=== PATIENT | male | born 1950 | race Caucasian/White ===

== ENCOUNTER 2017-12-24 09:04 | Emergency (ER) | payer BC, MEDICARE ==
[2017-12-24 09:18] VITALS: BP 120/85; PULSE 94; RESP 16; TEMP 97.8
--- NOTE | 2017-12-24 12:36 | ED ---
ENT HPI - General Chief complaint: ENT Stated complaint: Nosebleed Time Seen by Provider: 12/24/17 09:25 Source: patient Mode of arrival: ambulatory Limitations: no limitations - History of Present Illness Initial comments: 67 years old male had a nosebleed since 6 AM today he is on his overall toe and he has a history of atrial fibrillation, he denies any trauma to the nose he denies any other complaints, review of system is unremarkable - Related Data Home Medications Medication Instructions Recorded Confirmed Calcium Carbonate/Vitamin D3 1 tab PO MOTUWETHFR 12/24/17 12/24/17 [Calcium 500-Vit D3 200 Tablet] Lutein 10 mg PO MOTUWETHFR 12/24/17 12/24/17 Magtein 1 tab PO MOTUWETHFR 12/24/17 12/24/17 Metoprolol Succinate (ER) [Toprol 25 mg PO DAILY 12/24/17 12/24/17 Xl] Niacinamide 1 tab PO MOTUWETHFR 12/24/17 12/24/17 Rivaroxaban [Xarelto] 20 mg PO DAILY 12/24/17 12/24/17 Selenium 100 mcg PO MOTUWETHFR 12/24/17 12/24/17 Sylmarin 1 tab PO MOTUWETHFR 12/24/17 12/24/17 Turmeric Root Extract [Turmeric] 500 mg PO MOTUWETHFR 12/24/17 12/24/17 Ubidecarenone [Co Q-10] 100 mg PO MOTUWETHFR 12/24/17 12/24/17 Vein Guard 1 tab PO MOTUWETHFR 12/24/17 12/24/17 Vit C/E/Zn/Coppr/Lutein/Zeaxan 1 cap PO MOTUWETHFR 12/24/17 12/24/17 [Preservision Areds 2 Softgel] Vitamin E (Dl,Tocopheryl Acet) 400 unit PO MOTUWETHFR 12/24/17 12/24/17 [Vitamin E] Allergies Allergy/AdvReac Type Severity Reaction Status Date / Time No Known Allergies Allergy Verified 12/24/17 10:19 Review of Systems ROS Statement: Those systems with pertinent positive or pertinent negative responses have been documented in the HPI. ROS Other: All systems not noted in ROS Statement are negative. Past Medical History Past Medical History: Atrial Fibrillation History of Any Multi-Drug Resistant Organisms: None Reported Past Surgical History: Hernia Repair Past Psychological History: No Psychological Hx Reported Smoking Status: Never smoker Past Alcohol Use History: Occasional Past Drug Use History: None Reported General Exam - General Exam Comments Initial Comments: General: The patient is awake and alert, in no distress, and does not appear acutely ill. Skin: Skin is warm and dry and no rashes or lesions are noted. Eye: Pupils are equal, round and reactive to light, extra-ocular movements are intact; there is normal conjunctiva bilaterally. Ears, nose, mouth and throat: Left-sided the nose was bleeding initially, it was packed, he still noticed some blood in the oropharynx and was repacked. Than the right nostril started bleeding there was packed as well Neck: The neck is supple, there is no tenderness Cardiovascular: There is a regular rate and rhythm. No murmur, rub or gallop is appreciated. Respiratory: To auscultation bilateral, no wheezing no rhonchi no distress respiratory delgadillo noticed Gastrointestinal: Soft, non-distended, non-tender abdomen without masses or organomegaly noted. There is no rebound or guarding present. Bowel sounds are unremarkable. Back: There is no tenderness to palpation in the midline. There is no obvious deformity. Musculoskeletal: Normal ROM, no tenderness, There is no pedal edema. There is no calf tenderness or swelling. No cords were appreciated. Neurological: CN II-XII intact, Cranial nerves III through XII are intact. There are no obvious motor or sensory deficits. Coordination appears grossly intact. Speech is normal. Psychiatric: Cooperative, appropriate mood & affect, normal judgment. Limitations: no limitations Course Vital Signs 12/24/17 09:14 Temperature 97.8 F Pulse Rate 94 Respiratory 16 Rate Blood Pressure 120/85 O2 Sat by Pulse 95 Oximetry The left side term nose was packed twice, and inflatable nose packing or nasal pain no was to be comfort the left-sided nasal cavity. Then the right-sided bleeding it was packed as well patient was observed in the ER for couple of hours with some ice water gargles to keep his check on the pleuritic in the oropharynx - Reevaluation(s) Reevaluation #1: Advised to return back to ER in 24-36 hours for the removal of the packing, he agreed with that or return to the ER if bleeds again 12/24/17 12:36 Disposition Clinical Impression: Epistaxis Disposition: HOME SELF-CARE Condition: Good Instructions: Nosebleed (ED) Additional Instructions: Return as instructed for packing removal per Dr Hess. Referrals: Cassandra Reynoso MD [Primary Care Provider] - 1-2 days
== END 2017-12-24 12:09 | disposition home or self-care (01) ==
LOC: EC 09:04
DX: R04.0 Epistaxis (principal); I48.91 Unspecified atrial fibrillation; Z79.01 Long term (current) use of anticoagulants; Z79.899 Other long term (current) drug therapy
CPT/HCPCS: 30901; 99283

== ENCOUNTER 2017-12-25 17:30 | Emergency (ER) | payer MEDICARE ==
[2017-12-25 18:50] VITALS: BP 132/85; PULSE 98; RESP 18; TEMP 97.8
--- NOTE | 2017-12-25 19:16 | ED ---
Recheck HPI - General Chief Complaint: Recheck/Abnormal Lab/Rx Stated Complaint: Bloody nose Time Seen by Provider: 12/25/17 19:01 Source: patient, RN notes reviewed, old records reviewed Mode of arrival: ambulatory Limitations: no limitations - History of Present Illness Initial Comments: This patient is a 67-year-old male presents emergency Department with bilateral anterior nasal packing. He reports that he is here to have packing removed. He was seen yesterday and had 2 nasal tampons placed in the right near and 1 nasal tampon placed in the left near. Patient reports that he was told to return in 36 hours abdomen removed. He is here with a 30 hour yury. Patient reports these had no significant bleeding. He is on several toe. Patient states that he's had no swallowing blood. No chest pain. He states that he did not take his blood thinner today because of this. He reports his previously followed up with her nose and throat specialist. - Related Data Home Medications Medication Instructions Recorded Confirmed Calcium Carbonate/Vitamin D3 1 tab PO MOTUWETHFR 12/24/17 12/24/17 [Calcium 500-Vit D3 200 Tablet] Lutein 10 mg PO MOTUWETHFR 12/24/17 12/24/17 Magtein 1 tab PO MOTUWETHFR 12/24/17 12/24/17 Metoprolol Succinate (ER) [Toprol 25 mg PO DAILY 12/24/17 12/24/17 Xl] Niacinamide 1 tab PO MOTUWETHFR 12/24/17 12/24/17 Rivaroxaban [Xarelto] 20 mg PO DAILY 12/24/17 12/24/17 Selenium 100 mcg PO MOTUWETHFR 12/24/17 12/24/17 Sylmarin 1 tab PO MOTUWETHFR 12/24/17 12/24/17 Turmeric Root Extract [Turmeric] 500 mg PO MOTUWETHFR 12/24/17 12/24/17 Ubidecarenone [Co Q-10] 100 mg PO MOTUWETHFR 12/24/17 12/24/17 Vein Guard 1 tab PO MOTUWETHFR 12/24/17 12/24/17 Vit C/E/Zn/Coppr/Lutein/Zeaxan 1 cap PO MOTUWETHFR 12/24/17 12/24/17 [Preservision Areds 2 Softgel] Vitamin E (Dl,Tocopheryl Acet) 400 unit PO MOTUWETHFR 12/24/17 12/24/17 [Vitamin E] Allergies Allergy/AdvReac Type Severity Reaction Status Date / Time No Known Allergies Allergy Verified 12/24/17 10:19 Review of Systems ROS Statement: Those systems with pertinent positive or pertinent negative responses have been documented in the HPI. ROS Other: All systems not noted in ROS Statement are negative. Past Medical History Past Medical History: Atrial Fibrillation History of Any Multi-Drug Resistant Organisms: None Reported Past Surgical History: Hernia Repair Past Psychological History: No Psychological Hx Reported Smoking Status: Never smoker Past Alcohol Use History: Occasional Past Drug Use History: None Reported General Exam - General Exam Comments Initial Comments: Alert and oriented well-appearing 67-year-old male. 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 No distress. Limitations: no limitations General appearance: alert, in no apparent distress Head exam: Present: atraumatic, normocephalic, normal inspection Eye exam: Present: normal appearance, PERRL, EOMI. Absent: scleral icterus, conjunctival injection, periorbital swelling ENT exam: Present: normal exam, normal oropharynx, mucous membranes moist, other (Evidence of bilateral nasal packing. No blood at the end of the packing. ) Neck exam: Present: normal inspection. Absent: tenderness, meningismus, lymphadenopathy Respiratory exam: Present: normal lung sounds bilaterally. Absent: respiratory distress, wheezes, rales, rhonchi, stridor Cardiovascular Exam: Present: regular rate, normal rhythm, normal heart sounds. Absent: systolic murmur, diastolic murmur, rubs, gallop, clicks Psychiatric exam: Present: normal affect, normal mood Skin exam: Present: warm, dry, intact, normal color. Absent: rash Course Vital Signs 12/25/17 18:47 Temperature 97.8 F Pulse Rate 98 Respiratory 18 Rate Blood Pressure 132/85 O2 Sat by Pulse 95 Oximetry Medical Decision Making - Medical Decision Making This patient is 67-year-old male presents emergency department today with history of nosebleed and had bilateral packing completed yesterday. He has 2 nasal tampons in the left nare, one nasal tampon in right nare. He returned is a 30 hour yury. I discussed with Dr. Cervantes patient's symptoms. He discussed that it should be 48 hours for removal from the onset of the packing. Discussed the patient is here too early. I discussed with the patient and concerned if I removed the packing he will have further bleeding. And at that point patient will have to have the packing in for 2 full days. He agrees that he would like to keep the packing in at this time. Discussed that he can follow -up with dry chain offbearer to have it removed. Discussed referral to Dr. Woody and Dr. Engel. All questions were answered and return parameters were discussed. Disposition Clinical Impression: Encounter for removal of nasal packing, Epistaxis Disposition: HOME SELF-CARE Condition: Good Instructions: Nosebleed (ED) Additional Instructions: Patient advised to keep the nasal packing in for one more day. Patient should follow-up tomorrow with the dry chain offbearer for removal. Return to the emergency department if any alarming signs or symptoms occur. Referrals: Cassandra Reynoso MD [Primary Care Provider] - 1-2 days Axel Yoder DO [Doctor of Osteopathic Medicine] - 1-2 days Vidal Abdi MD [STAFF PHYSICIAN] - 1-2 days Time of Disposition: 19:15
== END 2017-12-25 19:30 | disposition home or self-care (01) ==
LOC: EC 17:30
DX: R04.0 Epistaxis (principal); Z48.00 Encounter for change or removal of nonsurgical wound dressing; I48.91 Unspecified atrial fibrillation; Z79.01 Long term (current) use of anticoagulants; Z79.899 Other long term (current) drug therapy
CPT/HCPCS: 99283

== ENCOUNTER → 2024-02-08 | Outpatient (CLI) | payer MEDICARE ==
[2024-02-08 18:30] LABS: BUN/Creat Ratio 21.22 Ratio (12.00-20.00); Blood Urea Nitrogen 19.1 mg/dL (9.0-27.0); C Reactive Protein <0.30 mg/dL (0.00-0.80); Chloride 104 mmol/L (96-109); Glucose 98 mg/dL (70-110); LDL Cholesterol,Calculated 100.1 mg/dL (0.0-131.0); Potassium 4.5 mmol/L (3.5-5.5); Sodium 142 mmol/L (135-145); VLDL Calculation 12.06 mg/dL (5.00-40.00)
[2024-02-08 18:31] LABS: ALT 19 U/L (10-49); AST 20 U/L (14-35); Calcium 9.6 mg/dL (8.7-10.3); Carbon Dioxide 25.2 mmol/L (21.6-31.8)
[2024-02-08 19:32] LABS: Basophils # (A) 0.03 X 10*3/uL (0.00-0.10); Basophils % (A) 0.6 %; Eosinophils # (A) 0.26 X 10*3/uL (0.04-0.35); Eosinophils % (A) 4.9 %; HCT 47.9 % (39.6-50.0); HGB 15.8 g/dL (13.0-17.0); Lymphocytes # (A) 0.51 X 10*3/uL (0.90-5.00); Lymphocytes % (A) 9.5 %; MCH 29.6 pg (27.0-32.0); MCV 89.9 FL (80.0-97.0); Mean Platelet Volume 10.3 FL (9.5-12.2); Monocytes # (A) 0.54 X 10*3/uL (0.20-1.00); Monocytes % (A) 10.1 %; NRBC Per 100 WBC 0 X 10*3/uL (0.00-0.01); Neutrophils % (A) 74.5 %; Platelet Count 205 X 10*3/uL (140-440); RBC 5.33 X 10*6/uL (4.40-5.60); RDW 13.8 % (11.5-14.5); WBC 5.36 X 10*3/uL (4.50-10.00)
[2024-02-08 19:54] LABS: Erythrocyte Sedimentation Rate 15 mm/Hr (0-20)
[2024-02-09 15:16] LABS: HLA B27 NEGATIVE
== END | disposition home or self-care (01) ==
LOC: LABWHC1 13:32
PROVIDERS: ATTEND Internal Medicine Cardiovascular Disease
DX: I48.11 Longstanding persistent atrial fibrillation (principal); E78.2 Mixed hyperlipidemia
CPT/HCPCS: 36415; 80048; 80061; 84443; 84450; 84460; 85025; 85549; 85652; 86140; 86480; 86611; 86780; 86812

== ENCOUNTER 2024-06-07 18:18 | Observation (INO) | payer MEDICARE ==
--- NOTE | 2024-06-07 19:09 | ED ---
General Adult HPI - General Chief complaint: Chest Pain Stated complaint: chest pain/chills Time Seen by Provider: 06/07/24 18:45 Source: patient, RN notes reviewed, old records reviewed Mode of arrival: ambulatory Limitations: no limitations - History of Present Illness Initial comments: 73-year-old male who presents to the emergency department stating that He has a history of atrial fibrillation. Patient states that about 9:00 this morning started having left-sided chest pain it was definitely worse with inspiration but it was also there when he was not taking a deep breath. Patient denies any fever or cough but states he did have the chills earlier today. Patient denies any back pain. Patient denies any abdominal pain patient denies any nausea vomiting diarrhea - Related Data Home Medications Medication Instructions Recorded Confirmed Apixaban [Eliquis] 5 mg PO BID 06/07/24 06/07/24 Ketorolac 0.5% Ophth Soln [Acular 1 drop RIGHT EYE QID 06/07/24 06/07/24 0.5%] prednisoLONE ACETATE 1% OPHTH 1 drop LEFT EYE QID 06/07/24 06/07/24 [Pred Forte 1%] Allergies Allergy/AdvReac Type Severity Reaction Status Date / Time No Known Allergies Allergy Verified 06/07/24 19:43 Review of Systems ROS Statement: Those systems with pertinent positive or pertinent negative responses have been documented in the HPI. ROS Other: All systems not noted in ROS Statement are negative. Past Medical History Past Medical History: Atrial Fibrillation History of Any Multi-Drug Resistant Organisms: None Reported Past Surgical History: Hernia Repair Past Psychological History: No Psychological Hx Reported Past Alcohol Use History: Occasional Past Drug Use History: None Reported General Exam - General Exam Comments Initial Comments: GENERAL: Patient is well-developed and well-nourished. Patient is nontoxic and well- hydrated and is in no acute distress. ENT: Neck is soft and supple. No significant lymphadenopathy is noted. Oropharynx is clear. Moist mucous membranes. Neck has full range of motion without eliciting any pain. EYES: The sclera were anicteric and conjunctiva were pink and moist. Extraocular movements were intact and pupils were equal round and reactive to light. Eyelids were unremarkable. PULMONARY: Unlabored respirations. Good breath sounds bilaterally. No audible rales rhonchi or wheezing was noted. CARDIOVASCULAR: There is an irregular heartbeat ABDOMEN: Soft and nontender with normal bowel sounds. SKIN: Skin is clear with no lesions or rashes and otherwise unremarkable. NEUROLOGIC: Patient is alert and oriented x3. Cranial nerves II through XII are grossly intact. Motor and sensory are also intact. Normal speech, volume and content. Symmetrical smile. MUSCULOSKELETAL: Normal extremities with adequate strength and full range of motion. No lower extremity swelling or edema. No calf tenderness. LYMPHATICS: No significant lymphadenopathy is noted PSYCHIATRIC: Normal psychiatric evaluation. Limitations: no limitations Course Vital Signs 06/07/24 18:39 Temperature 99.3 F Pulse Rate 109 H Respiratory 20 Rate Blood Pressure 149/92 O2 Sat by Pulse 95 Oximetry Medical Decision Making - Medical Decision Making EKG is interpreted by myself but EKG shows atrial fibrillation at 96 bpm QRS is 94 QT interval 336 QTc is 390. Patient's EKG shows no ST segment ovation or depression. Was pt. sent in by a medical professional or institution (, PA, AUTOMATIC LATHE SETTER, urgent ca re, hospital, or long-term...) When possible be specific @ -No Did you speak to anyone other than the patient for history (EMS, parent, family, police, friend...)? What history was obtained from this source @ -No Did you review nursing and triage notes (agree or disagree)? Why? @ -I reviewed and agree with nursing and triage notes Were old charts reviewed (outside hosp., previous admission, EMS record, old EKG, old radiological studies, urgent care reports/EKG's, long-term records)? Report findings @ -No old charts were reviewed Differential Diagnosis? @ -Differential Chest Pain: Stable Angina, Unstable Angina, STEMI, NSTEMI Aortic Dissection, Pneumothorax, Musculoskeletal, Esophageal Spasm GERD, Cholecystitis, Pancreatitis, Zoster, this is not meant to be an all-inclusive list. EKG interpreted by me (3pts min.). @ -As above X-rays interpreted by me (1pt min.). @ -X-ray shows no acute normality CT interpreted by me (1pt min.). @ -None done U/S interpreted by me (1pt. min.). @ -None done What testing was considered but not performed or refused? (CT, X-rays, U/S, labs)? Why? @ -None What meds were considered but not given or refused? Why? @ -None Did you discuss the management of the patient with other professionals (professionals i.e. DrPolo, PA, AUTOMATIC LATHE SETTER, lab, RT, psych nurse, social services, holistic health practitioner, teacher, wildlife officer, wrapper caser)? Give summary @ -I spoke with [facility] hospitalist and they agreed to admit the patient Was smoking cessation discussed for >3mins.? @ -No Was critical care preformed (if so, how long)? @ -No Were there social determinants of health that impacted care today? How? (Homelessness, low income, unemployed, alcoholism, drug addiction, transportation, low edu. Level, literacy, decrease access to med. care, fci, rehab)? @ -No Was there de-escalation of care discussed even if they declined (Discuss DNR or withdrawal of care, Hospice)? DNR status @ -No What co-morbidities impacted this encounter? (DM, HTN, Smoking, COPD, CAD, Canc er, CVA, ARF, Chemo, Hep., AIDS, mental health diagnosis, sleep apnea, morbid obesity)? @ -None Was patient admitted / discharged? Hospital course, mention meds given and route, prescriptions, significant lab abnormalities, going to OR and other pertinent info. @ -Patient continues to have chest pain initial blood work was normal patient will be admitted and consult to cardiology will be placed Undiagnosed new problem with uncertain prognosis? @ -No Drug Therapy requiring intensive monitoring for toxicity (Heparin, Nitro, Insulin, Cardizem)? @ -No Were any procedures done? @ -No Diagnosis/symptom? @ -Chest pain Acute, or Chronic, or Acute on Chronic? @ -Acute Uncomplicated (without systemic symptoms) or Complicated (systemic symptoms)? @ -Comp Side effects of treatment? @ -No Exacerbation, Progression, or Severe Exacerbation? @ -No Poses a threat to life or bodily function? How? (Chest pain, USA, CT, pneumonia, PE, COPD, DKA, ARF, appy, cholecystitis, CVA, Diverticulitis, Homicidal, [place] icidal, threat to staff... and all critical care pts) @ -Yes this could turn into an CT and this could cause endorgan dysfunction - Lab Data Result diagrams: 06/07/24 19:21 06/07/24 19:21 Lab Results 09/13/24 09/13/24 09/13/24 Range/Units 19:21 19:21 19:21 WBC 7.8 (3.8-10.6) k/uL RBC 5.15 (4.30-5.90) m/uL Hgb 15.4 (13.0-17.5) gm/dL Hct 48.2 (39.0-53.0) % MCV 93.6 (80.0-100.0) fL MCH 29.8 (25.0-35.0) pg MCHC 31.9 (31.0-37.0) g/dL RDW 14.2 (11.5-15.5) % Plt Count 181 (150-450) k/uL MPV 6.9 Neutrophils % 84 % Lymphocytes % 6 % Monocytes % 7 % Eosinophils % 1 % Basophils % 0 % Neutrophils # 6.6 (1.3-7.7) k/uL Lymphocytes # 0.5 L (1.0-4.8) k/uL Monocytes # 0.5 (0-1.0) k/uL Eosinophils # 0.1 (0-0.7) k/uL Basophils # 0.0 (0-0.2) k/uL PT 11.5 (10.0-12.5) sec INR 1.1 (<1.2) APTT 27.6 (22.0-30.0) sec D-Dimer 0.69 H (<0.60) mg/L FEU Sodium 135 L (137-145) mmol/L Potassium 4.3 (3.5-5.1) mmol/L Chloride 103 (98-107) mmol/L Carbon Dioxide 24 (22-30) mmol/L Anion Gap 8 mmol/L BUN 16 (9-20) mg/dL Creatinine 0.73 (0.66-1.25) mg/dL Est GFR (CKD-EPI)AfAm >90 (>60 ml/min/1.73 sqM) Est GFR (CKD-EPI)NonAf >90 (>60 ml/min/1.73 sqM) Glucose 104 H (74-99) mg/dL Calcium 9.1 (8.4-10.2) mg/dL Magnesium 1.8 (1.6-2.3) mg/dL Total Bilirubin 1.1 (0.2-1.3) mg/dL AST 25 (17-59) U/L ALT 20 (4-49) U/L Alkaline Phosphatase 60 (38-126) U/L Troponin I (0.000-0.034) ng/mL NT-Pro-B Natriuret Pep 288 pg/mL Total Protein 6.6 (6.3-8.2) g/dL Albumin 3.9 (3.5-5.0) g/dL Influenza Type A (PCR) (Not Detectd) Influenza Type B (PCR) (Not Detectd) RSV (PCR) (Not Detectd) SARS-CoV-2 (PCR) (Not Detectd) 06/07/24 06/07/24 Range/Units 19:21 19:21 WBC (3.8-10.6) k/uL RBC (4.30-5.90) m/uL Hgb (13.0-17.5) gm/dL Hct (39.0-53.0) % MCV (80.0-100.0) fL MCH (25.0-35.0) pg MCHC (31.0-37.0) g/dL RDW (11.5-15.5) % Plt Count (150-450) k/uL MPV Neutrophils % % Lymphocytes % % Monocytes % % Eosinophils % % Basophils % % Neutrophils # (1.3-7.7) k/uL Lymphocytes # (1.0-4.8) k/uL Monocytes # (0-1.0) k/uL Eosinophils # (0-0.7) k/uL Basophils # (0-0.2) k/uL PT (10.0-12.5) sec INR (<1.2) APTT (22.0-30.0) sec D-Dimer (<0.60) mg/L FEU Sodium (137-145) mmol/L Potassium (3.5-5.1) mmol/L Chloride (98-107) mmol/L Carbon Dioxide (22-30) mmol/L Anion Gap mmol/L BUN (9-20) mg/dL Creatinine (0.66-1.25) mg/dL Est GFR (CKD-EPI)AfAm (>60 ml/min/1.73 sqM) Est GFR (CKD-EPI)NonAf (>60 ml/min/1.73 sqM) Glucose (74-99) mg/dL Calcium (8.4-10.2) mg/dL Magnesium (1.6-2.3) mg/dL Total Bilirubin (0.2-1.3) mg/dL AST (17-59) U/L ALT (4-49) U/L Alkaline Phosphatase (38-126) U/L Troponin I <0.012 (0.000-0.034) ng/mL NT-Pro-B Natriuret Pep pg/mL Total Protein (6.3-8.2) g/dL Albumin (3.5-5.0) g/dL Influenza Type A (PCR) Not Detected (Not Detectd) Influenza Type B (PCR) Not Detected (Not Detectd) RSV (PCR) Not Detected (Not Detectd) SARS-CoV-2 (PCR) Not Detected (Not Detectd) Disposition Clinical Impression: Chest pain Disposition: ADMITTED IP TO THIS HOSP Referrals: None,Stated [Primary Care Provider] - 1-2 days Time of Disposition: 20:32
[2024-06-07] MEDS: ASPIRIN 81 MG PO STA (19:26)
[2024-06-07] MEDS: NITROGLYCERIN OINT 1 INCH/GM PACKET TOPICAL STA (19:26)
[2024-06-07 19:48] LABS: Basophils % (A) 0 %; Eosinophils # (A) 0.1 k/uL (0-0.7); Eosinophils % (A) 1 %; HCT 48.2 % (39.0-53.0); HGB 15.4 gm/dL (13.0-17.5); Lymphocytes # (A) 0.5 k/uL (1.0-4.8); Lymphocytes % (A) 6 %; MCH 29.8 pg (25.0-35.0); MCHC 31.9 g/dL (31.0-37.0); MCV 93.6 fL (80.0-100.0); Mean Platelet Volume 6.9; Monocytes # (A) 0.5 k/uL (0-1.0); Monocytes % (A) 7 %; Neutrophils # (A) 6.6 k/uL (1.3-7.7); Neutrophils % (A) 84 %; Platelet Count 181 k/uL (150-450); RBC 5.15 m/uL (4.30-5.90); RDW 14.2 % (11.5-15.5); WBC 7.8 k/uL (3.8-10.6)
[2024-06-07 20:04] LABS: ALT 20 U/L (4-49); AST 25 U/L (17-59); African American GFR (CKD) >90 (>60 ml/min/1.73 sqM); Albumin 3.9 g/dL (3.5-5.0); Alkaline Phosphatase 60 U/L (38-126); Anion Gap 8 mmol/L; Blood Urea Nitrogen 16 mg/dL (9-20); Calcium 9.1 mg/dL (8.4-10.2); Carbon Dioxide 24 mmol/L (22-30); Chloride 103 mmol/L (98-107); Glucose 104 mg/dL (74-99); Magnesium 1.8 mg/dL (1.6-2.3); Non-African American GFR(CKD) >90 (>60 ml/min/1.73 sqM); Potassium 4.3 mmol/L (3.5-5.1); Sodium 135 mmol/L (137-145); Total Bilirubin 1.1 mg/dL (0.2-1.3); Total Protein 6.6 g/dL (6.3-8.2)
[2024-06-07 20:09] LABS: INR 1.1 (<1.2); Partial Thromboplastin Time 27.6 sec (22.0-30.0); Prothrombin Time 11.5 sec (10.0-12.5)
[2024-06-07 20:12] LABS: NT-Pro-B-Type Natriuretic Pept 288 pg/mL
[2024-06-07] MEDS ORDERED: NITROGLYCERIN SL TABS 0.4 MG TAB SUBLINGUAL PRN (20:33)
[2024-06-07] MEDS: APIXABAN 5 MG TAB PO SCH (21:08)
--- NOTE | 2024-06-07 21:31 | XR ---
EXAMINATION TYPE: XR chest 2V DATE OF EXAM: 06/07/2024 7:30 PM CLINICAL INDICATION:Male, 73 years old with history of Chest Pain. Shortness of breath with exertion. Patient reported having chills earlier. COMPARISON: None TECHNIQUE: XR chest 2V Frontal view of the chest. FINDINGS: There is increased opacification/fullness in the right hilum. Hazy opacification seen in the left susanne g base partially obscuring the left costophrenic sulcus. The cardiac silhouette is within normal limi ts. No pneumothorax. No acute osseous abnormalities. IMPRESSION: 1. Right hilar fullness/opacification may relate to lymphadenopathy versus enlargement of the right p ulmonary artery. 2. Left trace pleural effusion suggested.
[2024-06-07] MEDS: prednisoLONE ACETATE 1% OPHTH DROPS 5 ML BTL LEFT EYE SCH (23:27)
[2024-06-07] MEDS: NITROGLYCERIN OINT 1 INCH/GM PACKET TOPICAL SCH (23:49)
[2024-06-08 02:49] VITALS: RESP 16
[2024-06-08 07:32] VITALS: BP 115/72; PULSE 78; TEMP 98.7
[2024-06-08] MEDS: ASPIRIN 325 MG TAB PO SCH (08:16)
--- NOTE | 2024-06-08 10:30 | P.CRDCN ---
History of Present Illness Consult date: 06/08/24 History of present illness: The patient is a very pleasant 73-year-old gentleman with a past medical history significant for permanent atrial fibrillation presented to the hospital complaining of chest discomfort. He was in his usual state of health till yesterday when he was sitting at home and started experiencing discomfort on the left upper and left lower chest with no radiation to the arms or neck or shoulders or back and no associated symptoms of shortness of breath or sweating or dizziness or lightheadedness or any feeling of heart racing or fluttering or presyncope or syncope. Further investigation performed including an EKG showing A-fib with diffuse nonspecific ST and T wave abnormalities and also troponin came in to be unremarkable and chest x-ray came to be unremarkable. Currently he is asymptomatic. Patient stated that he underwent a stress test recently in our office and he was informed that it was unremarkable. The physical examination is remarkable for irregular rhythm with a soft systolic murmur and clear breathing sounds bilaterally and no edema was noted in the lower extremities Assessment Atypical versus noncardiac chest pain Atrial fibrillation with controlled heart rate Plan Acute coronary event was ruled out Obtain a copy of the stress test from the office recently Follow-up with the patient Past Medical History Past Medical History: Atrial Fibrillation History of Any Multi-Drug Resistant Organisms: None Reported Past Surgical History: Hernia Repair Past Psychological History: No Psychological Hx Reported Smoking Status: Never smoker Past Alcohol Use History: Occasional Past Drug Use History: None Reported Medications and Allergies Home Medications Medication Instructions Recorded Confirmed Type Apixaban [Eliquis] 5 mg PO BID 06/07/24 06/07/24 History Ketorolac 0.5% Ophth Soln [Acular 1 drop RIGHT EYE QID 06/07/24 06/07/24 History 0.5%] prednisoLONE ACETATE 1% OPHTH 1 drop LEFT EYE QID 06/07/24 06/07/24 History [Pred Forte 1%] Allergies Allergy/AdvReac Type Severity Reaction Status Date / Time No Known Allergies Allergy Verified 06/07/24 19:43 Physical Exam Vitals: Vital Signs Temp Pulse Pulse Resp BP BP BP 06/08/24 07:00 98.7 F 78 16 115/72 06/08/24 02:00 98.3 F 75 16 106/60 06/07/24 21:10 95 18 126/90 06/07/24 18:39 99.3 F 109 H 20 149/92 Pulse Ox 06/08/24 07:00 96 06/08/24 02:00 94 L 06/07/24 21:10 95 06/07/24 18:39 95 Intake and Output 06/07/24 06/08/24 06/08/24 22:59 06:59 14:59 Other: # Voids 1 3 Weight 113.398 kg Results 06/07/24 19:21 06/07/24 19:21 Cardiac Enzymes 06/07/24 06/07/24 06/07/24 Range/Units 19:21 19:21 22:16 AST 25 (17-59) U/L Troponin I <0.012 <0.012 (0.000-0.034) ng/mL 06/08/24 Range/Units 02:22 AST (17-59) U/L Troponin I <0.012 (0.000-0.034) ng/mL Coagulation 06/07/24 Range/Units 19:21 PT 11.5 (10.0-12.5) sec APTT 27.6 (22.0-30.0) sec CBC 06/07/24 Range/Units 19:21 WBC 7.8 (3.8-10.6) k/uL RBC 5.15 (4.30-5.90) m/uL Hgb 15.4 (13.0-17.5) gm/dL Hct 48.2 (39.0-53.0) % Plt Count 181 (150-450) k/uL Comprehensive Metabolic Panel 06/07/24 Range/Units 19:21 Sodium 135 L (137-145) mmol/L Potassium 4.3 (3.5-5.1) mmol/L Chloride 103 (98-107) mmol/L Carbon Dioxide 24 (22-30) mmol/L BUN 16 (9-20) mg/dL Creatinine 0.73 (0.66-1.25) mg/dL Glucose 104 H (74-99) mg/dL Calcium 9.1 (8.4-10.2) mg/dL AST 25 (17-59) U/L ALT 20 (4-49) U/L Alkaline Phosphatase 60 (38-126) U/L Total Protein 6.6 (6.3-8.2) g/dL Albumin 3.9 (3.5-5.0) g/dL Current Medications Generic Name Dose Route Start Last Admin Trade Name Freq PRN Reason Stop Dose Admin Apixaban 5 mg 06/07/24 21:00 06/08/24 08:16 Apixaban 5 Mg Tab PO 5 mg BID [facility] Administration Protocol Aspirin 325 mg 06/08/24 09:00 06/08/24 08:16 Aspirin 325 Mg Tab PO 325 mg DAILY [facility] Administration Nitroglycerin 0.4 mg 06/07/24 20:33 Nitroglycerin Sl Tabs 0.4 Mg Tab SUBLINGUAL Q5M PRN Chest Pain Nitroglycerin 1 inch 06/08/24 00:00 06/08/24 05:49 Nitroglycerin Oint 1 Inch/Gm Packet TOPICAL Not Given Q6HR [facility] Prednisolone Acetate 1 drops 06/07/24 22:00 06/08/24 08:16 Prednisolone Acetate 1% Ophth Drops 5 Ml Btl LEFT EYE 1 drops QID [facility] Administration Intake and Output 06/07/24 06/08/24 06/08/24 22:59 06:59 14:59 Other: # Voids 1 3 Weight 113.398 kg 06/07/24 19:21 06/07/24 19:21
[2024-06-08 10:34] LABS: Chol/HDL Ratio 3.02 Ratio; LDL Cholesterol,Calculated 86.4 mg/dL (0.0-131.0); VLDL Calculation 10.56 mg/dL (5.00-40.00)
--- NOTE | 2024-06-08 11:56 | P.HPIM ---
History of Present Illness H&P Date: 06/08/24 This is a 73-year-old male with medical history of atrial fibrillation anticoagulated with Eliquis on an outpatient basis follows with Dr. Hector in the office. Patient comes in for a 1 day history of acute left-sided chest discomfort states that started yesterday in the morning around 10 AM and by 5 PM the pain had not gone; he was feeling chills and diaphoresis so he came into the hospital for evaluation. Patient states that he was not doing any strenuous activity that day or the day prior. No associated shortness of breath no dizziness or lightheadedness. Patient does report drinking 2 beers every day denies any tobacco use. He is also complaining of what he describes as neuropathy having like [id number] sensation in the bottom of his feet. He also has a little of hyperpigmentation in his right ankle that he is questioning. Some of the workup included EKG which reveals atrial fibrillation heart rate of 96 with an incomplete right bundle branch block. Chest x-ray reveals right hilar fullness opacity may relate to a lymphadenopathy versus enlargement of the right pulmonary artery. There is a left trace pleural effusion suggested. D-dimer was found to be 0.69 which is considered essentially age-appropriate, sodium 135, troponin level is negative x 3. proBNP was 288, triglyceride level of 52.8, cholesterol 145, LDL of 86.4, HDL of 48.00. His viral panel was negative for influenza RSV and COVID. He was admitted to the hospital under internal medicine with a consult placed to cardiology services. REVIEW OF SYSTEMS: CONSTITUTIONAL: No fever, no malaise, no fatigue. HEENT: No recent visual problems or hearing problems. Denied any sore throat. CARDIOVASCULAR: No chest pain, orthopnea, PND, no palpitations, no syncope. PULMONARY: No shortness of breath, no cough, no hemoptysis. GASTROINTESTINAL: No diarrhea, no nausea, no vomiting, no abdominal pain. NEUROLOGICAL: No headaches, no weakness, no numbness. HEMATOLOGICAL: Denies any bleeding or petechiae. GENITOURINARY: Denies any burning micturition, frequency, or urgency. MUSCULOSKELETAL/RHEUMATOLOGICAL: Denies any joint pain, swelling, or any muscle pain. ENDOCRINE: Denies any polyuria or polydipsia. The rest of the 14-point review of systems is negative. PHYSICAL EXAMINATION: GENERAL: The patient is alert and oriented x3, not in any acute distress. Well developed, well nourished. HEENT: Pupils are round and equally reacting to light. EOMI. No scleral icterus. No conjunctival pallor. Normocephalic, atraumatic. No pharyngeal erythema. No thyromegaly. CARDIOVASCULAR: S1 and S2 present. No murmurs, rubs, or gallops. PULMONARY: Chest is clear to auscultation, no wheezing or crackles. ABDOMEN: Soft, nontender, nondistended, normoactive bowel sounds. No palpable organomegaly. MUSCULOSKELETAL: No joint swelling or deformity. EXTREMITIES: No cyanosis, clubbing, or pedal edema. NEUROLOGICAL: Gross neurological examination did not reveal any focal deficits. SKIN: No rashes. Assessment and plan Acute chest pain, atypical rule out acute coronary syndrome cardiology consulta tion History of atrial fibrillation chronic anticoagulant with Eliquis patient has a controlled ventricular rate Elevated D-dimer age-appropriate patient is on room air not having any shortness of breath. Chronic alcohol use patient reports drinking 2 beers per day Peripheral neuropathy History of cataracts with surgery GI prophylaxis Full code Plan Patient has been resumed on his home medications Patient's recent stress test reports being obtained from the cardiology office Patient was started on a low-dose Cymbalta 30 mg daily and advised to follow-up with his PCP for further adjustments this is for his peripheral neuropathy Was counseled on alcohol cessation. The impression and plan of care has been dictated by Courtney Adams Nurse Practitioner as directed. Dr. Melina MD I have performed a history and physical examination and medical decision making of this patient, discussed the same with the dictator, and agree with the dictators assessment and plan as written, documented as a scribe. Based on total visit time, I have performed more than 50% of this visit. Past Medical History Past Medical History: Atrial Fibrillation History of Any Multi-Drug Resistant Organisms: None Reported Past Surgical History: Hernia Repair Past Psychological History: No Psychological Hx Reported Smoking Status: Never smoker Past Alcohol Use History: Occasional Past Drug Use History: None Reported Medications and Allergies Home Medications Medication Instructions Recorded Confirmed Type Apixaban [Eliquis] 5 mg PO BID 06/07/24 06/07/24 History Ketorolac 0.5% Ophth Soln [Acular 1 drop RIGHT EYE QID 06/07/24 06/07/24 History 0.5%] prednisoLONE ACETATE 1% OPHTH 1 drop LEFT EYE QID 06/07/24 06/07/24 History [Pred Forte 1%] Allergies Allergy/AdvReac Type Severity Reaction Status Date / Time No Known Allergies Allergy Verified 06/07/24 19:43 Physical Exam Vitals: Vital Signs Temp Pulse Pulse Resp BP BP BP 06/08/24 07:00 98.7 F 78 16 115/72 06/08/24 02:00 98.3 F 75 16 106/60 06/07/24 21:10 95 18 126/90 06/07/24 18:39 99.3 F 109 H 20 149/92 Pulse Ox 06/08/24 07:00 96 06/08/24 02:00 94 L 06/07/24 21:10 95 06/07/24 18:39 95 Intake and Output 06/07/24 06/08/24 06/08/24 22:59 06:59 14:59 Other: # Voids 1 3 Weight 113.398 kg Results CBC & Chem 7: 06/07/24 19:21 06/07/24 19:21 Labs: Abnormal Lab Results - Last 24 Hours (Table) 06/07/24 06/07/24 06/07/24 Range/Units 19:21 19:21 19:21 Lymphocytes # 0.5 L (1.0-4.8) k/uL D-Dimer 0.69 H (<0.60) mg/L FEU Sodium 135 L (137-145) mmol/L Glucose 104 H (74-99) mg/dL Assessment and Plan Time with Patient: Less than 30
== END 2024-06-08 13:40 | disposition home or self-care (01) ==
LOC: EC 18:18 → 6NMEDSUR 20:33
PROVIDERS: ADMIT Hospitalist; ATTEND Hospitalist
DX: R07.89 Other chest pain (principal); I48.21 Permanent atrial fibrillation; G62.9 Polyneuropathy, unspecified; R61 Generalized hyperhidrosis; R68.83 Chills (without fever); L81.9 Disorder of pigmentation, unspecified; I45.10 Unspecified right bundle-branch block; R79.89 Other specified abnormal findings of blood chemistry; F10.90 Alcohol use, unspecified, uncomplicated; Z79.01 Long term (current) use of anticoagulants; Z88.8 Allergy status to other drugs, medicaments and biological substances; Z11.52 Encounter for screening for COVID-19; Z11.59 Encounter for screening for other viral diseases; Z98.49 Cataract extraction status, unspecified eye; Z71.41 Alcohol abuse counseling and surveillance of alcoholic
CPT/HCPCS: 36415; 71046; 80053; 80061; 83735; 83880; 84484; 85025; 85379; 85610; 85730; 87636; 93005; 99285

== ENCOUNTER 2024-12-09 10:25 | Emergency (ER) | payer MEDICARE ==
[2024-12-09 10:29] VITALS: RESP 20
--- NOTE | 2024-12-09 11:10 | ED ---
Male Urogenital HPI - General Chief complaint: Urogenital Stated complaint: bladder problems Time Seen by Provider: 12/09/24 11:09 Source: patient, RN notes reviewed Mode of arrival: ambulatory Limitations: no limitations - History of Present Illness Initial comments: 74-year-old male presented the ER for evaluation of urinary retention. He states over the past year he has noticed a decreased forceful flow when urinating. He states this has progressively worsened. Patient reports since either Monday or Monday he has not been able to urinate. He states he has been dribbling urine. He does report a abdominal discomfort and back discomfort which he contributes to this. No history of Alba catheter use. He has not followed up with a urologist at this time. No other complaints. - Related Data Home Medications Medication Instructions Recorded Confirmed Apixaban [Eliquis] 5 mg PO BID 06/07/24 06/07/24 Ketorolac 0.5% Ophth Soln [Acular 1 drop RIGHT EYE QID 06/07/24 06/07/24 0.5%] prednisoLONE ACETATE 1% OPHTH 1 drop LEFT EYE QID 06/07/24 06/07/24 [Pred Forte 1%] Previous Rx's Medication Instructions Recorded DULoxetine HCL [Cymbalta] 30 mg PO DAILY #30 cap 06/08/24 Allergies Allergy/AdvReac Type Severity Reaction Status Date / Time No Known Allergies Allergy Verified 12/09/24 10:28 Review of Systems ROS Statement: Those systems with pertinent positive or pertinent negative responses have been documented in the HPI. ROS Other: All systems not noted in ROS Statement are negative. Past Medical History Past Medical History: Atrial Fibrillation History of Any Multi-Drug Resistant Organisms: None Reported Past Surgical History: Hernia Repair Past Psychological History: No Psychological Hx Reported Smoking Status: Never smoker Past Alcohol Use History: Occasional Past Drug Use History: None Reported General Exam Limitations: no limitations General appearance: alert, in no apparent distress Respiratory exam: Present: normal lung sounds bilaterally. Absent: respiratory distress, wheezes, rales, rhonchi, stridor Cardiovascular Exam: Present: regular rate, normal rhythm, normal heart sounds. Absent: systolic murmur, diastolic murmur, rubs, gallop, clicks GI/Abdominal exam: Present: soft, normal bowel sounds, other (pressure on palpitation suprpubic) Extremities exam: Present: normal inspection, full ROM, normal capillary refill. Absent: tenderness, pedal edema, joint swelling, calf tenderness Neurological exam: Present: alert, oriented X3, CN II-XII intact Skin exam: Present: warm, dry, intact, normal color. Absent: rash Course Vital Signs 12/09/24 12/09/24 12/09/24 10:26 11:38 12:17 Temperature 98.2 F 98.1 F Pulse Rate 92 72 76 Respiratory 20 20 20 Rate Blood Pressure 171/100 132/89 126/90 O2 Sat by Pulse 96 99 99 Oximetry - Reevaluation(s) Reevaluation #1: 12/09/24 11:46 Patient reevaluated. No signs of acute distress. Patient reporting improvement of abdominal and back discomfort. Medical Decision Making - Medical Decision Making Was pt. sent in by a medical professional or institution (, PA, DYNAMITE RECLAIMER, urgent care, hospital, or care home...) When possible be specific @ -No Did you speak to anyone other than the patient for history (EMS, parent, family, police, friend...)? What history was obtained from this source @ -Patient's , at bedside, aiding in HPI and past medical history. Did you review nursing and triage notes (agree or disagree)? Why? @ -I reviewed and agree with nursing and triage notes Were old charts reviewed (outside hosp., previous admission, EMS record, old EKG, old radiological studies, urgent care reports/EKG's, care home records)? Report findings @ -No old charts were reviewed Differential Diagnosis (chest pain, altered mental status, abdominal pain women, abdominal pain men, vaginal bleeding, weakness, fever, dyspnea, syncope, headache, dizziness, GI bleed, back pain, seizure, CVA, palpatations, mental health, musculoskeletal)? @ -UTI, urinary retention, BPH, kidney stone... This list is not meant to be all-inclusive EKG interpreted by me (3pts min.). @ -None done X-rays interpreted by me (1pt min.). @ -None done CT interpreted by me (1pt min.). @ -None done U/S interpreted by me (1pt. min.). @ -None done What testing was considered but not performed or refused? (CT, X-rays, U/S, labs)? Why? @ -None What meds were considered but not given or refused? Why? @ -None Did you discuss the management of the patient with other professionals (professionals i.e. , PA, D[employer] RE[employer]ER, lab, RT, psych nurse, social work administrator, mica parts sprayer, teacher, learning and development officer, case management rn)? Give summary @ -No Was smoking cessation discussed for >3mins.? @ -No Was critical care preformed (if so, how long)? @ -No Were there social determinants of health that impacted care today? How? (Homelessness, low income, unemployed, alcoholism, drug addiction, transportation, low edu. Level, literacy, decrease access to med. care, senior living, rehab)? @ -No Was there de-escalation of care discussed even if they declined (Discuss DNR or withdrawal of care, Hospice)? DNR status @ -No What co-morbidities impacted this encounter? (DM, HTN, Smoking, COPD, CAD, Cancer, CVA, ARF, Chemo, Hep., AIDS, mental health diagnosis, sleep apnea, morbid obesity)? @ -None Was patient admitted / discharged? Hospital course, mention meds given and route, prescriptions, significant lab abnormalities, going to OR and other pertinent info. @ -Discharged. 74 year old male presented to ER for evaluation of urinary retention. Vitals within acceptable limits. Bladder scan showing 816 ml postvoid. Alba catheter placed at that time with 1700 mL output. Patient reported improvement of abdominal discomfort after Alba catheter insertion. Urinalysis is hemorrhagic with 37 RBCs and moderate blood this is likely due to Alba catheter insertion as patient is on Eliquis. Patient will be discharged home with Alba catheter in place and instructed to follow-up with urology, referral given. Catheter care discussed with patient, all questions answered. Strict return parameters discussed. Patient discharged in stable condition with follow-up to urology. Patient verbally expressed understanding and agreement with care plan. Case discussed with ED attending, Dr. Carrillo. Undiagnosed new problem with uncertain prognosis? @ -No Drug Therapy requiring intensive monitoring for toxicity (Heparin, Nitro, Insulin, Cardizem)? @ -No Were any procedures done? @ -No Diagnosis/symptom? @ -Urinary retention Acute, or Chronic, or Acute on Chronic? @ -Acute Uncomplicated (without systemic symptoms) or Complicated (systemic symptoms)? @ -Uncomplicated Side effects of treatment? @ -No Exacerbation, Progression, or Severe Exacerbation? @ -No Poses a threat to life or bodily function? How? (Chest pain, [place], [place], pneumonia, PE, COPD, DKA, ARF, appy, cholecystitis, CVA, Diverticulitis, Homicidal, Suicidal, threat to staff... and all critical care pts) @ -No - Lab Data Lab Results 12/09/24 Range/Units 11:11 Urine Color Yellow Urine Appearance Clear (Clear) Urine pH 5.0 (5.0-8.0) Ur Specific [place] 1.018 (1.001-1.035) Urine Protein Negative (Negative) Urine Glucose (UA) Negative (Negative) Urine Ketones 1+ H (Negative) Urine Blood Moderate H (Negative) Urine Nitrite Negative (Negative) Urine Bilirubin Negative (Negative) Urine Urobilinogen <2.0 (<2.0) mg/dL Ur Leukocyte Esterase Negative (Negative) Urine RBC 37 H (0-5) /hpf Urine WBC 1 (0-5) /hpf Urine Bacteria Rare H (None) /hpf Urine Mucus Rare H (None) /hpf Disposition Clinical Impression: Urinary retention Disposition: HOME SELF-CARE Condition: Stable Instructions (If sedation given, give patient instructions): Urinary Retention in Men (ED), Alba Catheter Placement and Care (ED), How to Change a Catheter Drainage Bag (DC) Additional Instructions: Follow-up closely with urology in the next 1 to 3 days. Return to the ER for any new or worsening concerns. Is patient prescribed a controlled substance at d/c from ED?: No Referrals: None,Stated [Primary Care Provider] - 1-2 days Daniel Beckham MD [STAFF PHYSICIAN] - 1-2 days Time of Disposition: 11:58
[2024-12-09 11:27] LABS: Appearance,Urine Clear (Clear); Bacteria,Urine Rare /hpf; Bilirubin,Urine Negative (Negative); Blood,Urine Moderate (Negative); Color,Urine Yellow; Glucose,Urine (UA) Negative (Negative); Ketones,Urine 1+ (Negative); Leukocyte Esterase,Urine Negative (Negative); Mucus,Urine Rare /hpf; Nitrite,Urine Negative (Negative); Protein,Urine Negative (Negative); RBC,Urine 37 /hpf (0-5); Specific Gravity,Urine 1.018 (1.001-1.035); Urobilinogen,Urine <2.0 mg/dL (<2.0); WBC,Urine 1 /hpf (0-5)
[2024-12-09 12:21] VITALS: BP 126/90; PULSE 76; TEMP 98.1
== END 2024-12-09 12:21 | disposition home or self-care (01) ==
LOC: EC 10:25
DX: R33.9 Retention of urine, unspecified (principal)
CPT/HCPCS: 51702; 51798; 81001; 99283

== ENCOUNTER → 2025-02-07 | Outpatient (CLI) | payer MEDICARE | END | disposition home or self-care (01) | LOC: LABWHC1 10:28 | PROVIDERS: ATTEND Urology | DX: C61 Malignant neoplasm of prostate (principal) | CPT/HCPCS: 36415; 84153 ==

== ENCOUNTER 2025-02-21 16:53 | Emergency (ER) | payer MEDICARE ==
[2025-02-21 18:48] LABS: Appearance,Urine Cloudy (Clear); Bacteria,Urine Moderate /hpf; Bilirubin,Urine Negative (Negative); Blood,Urine Moderate (Negative); Color,Urine Light Yellow; Glucose,Urine (UA) Negative (Negative); Ketones,Urine Negative (Negative); Leukocyte Esterase,Urine Large (Negative); Mucus,Urine Rare /hpf; Nitrite,Urine Positive (Negative); PH, Urine 6.5 (5.0-8.0); Protein,Urine Negative (Negative); RBC,Urine 45 /hpf (0-5); Urobilinogen,Urine <2.0 mg/dL (<2.0); WBC,Urine 163 /hpf (0-5)
--- NOTE | 2025-02-21 18:51 | ED ---
General Adult HPI - General Chief complaint: Urogenital Stated complaint: Urogenital Time Seen by Provider: 02/21/25 17:49 Source: patient Mode of arrival: ambulatory Limitations: no limitations - History of Present Illness Initial comments: 74-year-old male presenting with chief complaint of urinary retention. Patient has a Alba catheter in place at this time and reports that he has not had any drainage since noon today. He does have some suprapubic pressure. Some lower back discomfort. No nausea vomiting or fever. - Related Data Home Medications Medication Instructions Recorded Confirmed Apixaban [Eliquis] 5 mg PO BID 06/07/24 06/07/24 Ketorolac 0.5% Ophth Soln [Acular 1 drop RIGHT EYE QID 06/07/24 06/07/24 0.5%] prednisoLONE ACETATE 1% OPHTH 1 drop LEFT EYE QID 06/07/24 06/07/24 [Pred Forte 1%] Previous Rx's Medication Instructions Recorded DULoxetine HCL [Cymbalta] 30 mg PO DAILY #30 cap 06/08/24 Sulfamethox-Tmp 800-160Mg [Bactrim 1 tab PO Q12HR 7 Days #14 tab 02/21/25 DS 800-160 mg] Allergies Allergy/AdvReac Type Severity Reaction Status Date / Time No Known Allergies Allergy Verified 02/21/25 17:48 Review of Systems ROS Statement: Those systems with pertinent positive or pertinent negative responses have been documented in the HPI. ROS Other: All systems not noted in ROS Statement are negative. Past Medical History Past Medical History: Atrial Fibrillation History of Any Multi-Drug Resistant Organisms: None Reported Past Surgical History: Hernia Repair Additional Past Surgical History / Comment(s): cataracts Past Psychological History: No Psychological Hx Reported Smoking Status: Never smoker Past Alcohol Use History: Occasional Past Drug Use History: None Reported General Exam Limitations: no limitations General appearance: alert, in no apparent distress Head exam: Present: atraumatic, normocephalic, normal inspection Eye exam: Present: normal appearance, EOMI Neck exam: Present: normal inspection. Absent: meningismus Respiratory exam: Absent: respiratory distress Cardiovascular Exam: Present: regular rate Neurological exam: Present: alert, oriented X3 Psychiatric exam: Present: normal affect, normal mood Skin exam: Present: warm, dry, normal color Course Vital Signs 02/21/25 02/21/25 17:43 19:18 Temperature 98.0 F 98 F Pulse Rate 67 65 Respiratory 22 20 Rate Blood Pressure 165/94 155/86 O2 Sat by Pulse 95 96 Oximetry Medical Decision Making - Medical Decision Making Was pt. sent in by a medical professional or institution ([facility]epeda, ORIENTAL MEDICINE PRACTITIONER, urgent care, hospital, or group home...) When possible be specific @ -No Did you speak to anyone other than the patient for history (EMS, parent, family, police, friend...)? What history was obtained from this source @ -No Did you review nursing and triage notes (agree or disagree)? Why? @ -I reviewed and agree with nursing and triage notes Were old charts reviewed (outside hosp., previous admission, EMS record, old EKG, old radiological studies, urgent care reports/EKG's, group home records)? Report findings @ -No old charts were reviewed Differential Diagnosis (chest pain, altered mental status, abdominal pain women, abdominal pain men, vaginal bleeding, weakness, fever, dyspnea, syncope, headache, dizziness, GI bleed, back pain, seizure, CVA, palpatations, mental health, musculoskeletal)? @ -Differential includes Alba catheter occlusion, stone, anatomical variant, malignancy, UTI, not an all-inclusive list EKG interpreted by me (3pts min.). @ -As above X-rays interpreted by me (1pt min.). @ -None done CT interpreted by me (1pt min.). @ -None done U/S interpreted by me (1pt. min.). @ -None done What testing was considered but not performed or refused? (CT, X-rays, U/S, labs)? Why? @ -None What meds were considered but not given or refused? Why? @ -None Did you discuss the management of the patient with other professionals (professionals i.e. [facility], ORIENTAL MEDICINE PRACTITIONER, lab, RT, psych nurse, social services specialist, installers mechanical, teacher, fisheries enforcement officer, medical case manager)? Give summary @ -No Was smoking cessation discussed for >3mins.? @ -No Was critical care preformed (if so, how long)? @ -No Were there social determinants of health that impacted care today? How? (Homelessness, low income, unemployed, alcoholism, drug addiction, transportation, low edu. Level, literacy, decrease access to med. care, care home, rehab)? @ -No Was there de-escalation of care discussed even if they declined (Discuss DNR or withdrawal of care, Hospice)? DNR status @ -No What co-morbidities impacted this encounter? (DM, HTN, Smoking, COPD, CAD, Cancer, CVA, ARF, Chemo, Hep., AIDS, mental health diagnosis, sleep apnea, morbid obesity)? @ -None Was patient admitted / discharged? Hospital course, mention meds given and route, prescriptions, significant lab abnormalities, going to OR and other pertinent info. @ -74-year-old male presenting with chief complaint of urinary retention. He has had no output from his Alba catheter since around noon today. He is having suprapubic pressure. History and physical examination are conducted. Alba catheter is replaced and the patient immediately has output and relief of his symptoms. Urine shows large leukocytes moderate blood and positive nitrates. Urine sent for culture we will treat for UTI with Bactrim. Patient is educated on today's findings and treatment plan. Follow-up with PCP. Report back to ER with any new or worsening symptoms. Discussed return parameters and answered all questions. Patient conveyed verbal understanding and agreed to the plan. I discussed this case in detail with my attending Undiagnosed new problem with uncertain prognosis? @ -No Drug Therapy requiring intensive monitoring for toxicity (Heparin, Nitro, Insulin, Cardizem)? @ -No Were any procedures done? @ -No Diagnosis/symptom? @ -Urinary retention, UTI Acute, or Chronic, or Acute on Chronic? @ -Acute Uncomplicated (without systemic symptoms) or Complicated (systemic symptoms)? @ -Uncomplicated Side effects of treatment? @ -No Exacerbation, Progression, or Severe Exacerbation? @ -No Poses a threat to life or bodily function? How? (Chest pain, [place], [place], pneumonia, PE, COPD, DKA, ARF, appy, cholecystitis, CVA, Diverticulitis, Homicidal, Suicidal, threat to staff... and all critical care pts) @ -No immediate threat at this time - Lab Data Lab Results 02/21/25 Range/Units 18:24 Urine Color Light Yellow Urine Appearance Cloudy (Clear) Urine pH 6.5 (5.0-8.0) Ur Specific [place] 1.020 (1.001-1.035) Urine Protein Negative (Negative) Urine Glucose (UA) Negative (Negative) Urine Ketones Negative (Negative) Urine Blood Moderate H (Negative) Urine Nitrite Positive (Negative) Urine Bilirubin Negative (Negative) Urine Urobilinogen <2.0 (<2.0) mg/dL Ur Leukocyte Esterase Large H (Negative) Urine RBC 45 H (0-5) /hpf Urine WBC 163 H (0-5) /hpf Urine Bacteria Moderate H (None) /hpf Urine Mucus Rare H (None) /hpf Disposition Clinical Impression: Urinary retention, UTI (urinary tract infection) Disposition: HOME SELF-CARE Condition: Good Instructions (If sedation given, give patient instructions): Urinary Tract Infection in Men (ED) Additional Instructions: Follow-up with your urologist. Report back to ER with any new or worsening symptoms. Prescriptions: Sulfamethox-Tmp 800-160Mg [Bactrim DS 800-160 mg] 1 tab PO Q12HR 7 Days #14 tab Is patient prescribed a controlled substance at d/c from ED?: No Referrals: None,Stated [Primary Care Provider] - 1-2 days Time of Disposition: 18:51
[2025-02-21] MEDS: SULFAMETHOX-TMP 800-160MG 1 EACH TAB PO STA (19:12)
[2025-02-21 19:21] VITALS: BP 155/86; PULSE 65; RESP 20; TEMP 98
== END 2025-02-21 19:18 | disposition home or self-care (01) ==
LOC: EC 16:53
DX: N39.0 Urinary tract infection, site not specified (principal)
CPT/HCPCS: 81001; 87077; 87086; 87186; 99283